=== PATIENT | male | born 1975 | race Caucasian/White ===

== ENCOUNTER 2019-11-19 12:35 | Emergency (ER) | payer OTHER ==
--- NOTE | 2019-11-19 13:34 | XR ---
EXAMINATION TYPE: XR chest 2V DATE OF EXAM: 11/19/2019 COMPARISON: None INDICATION: Cough TECHNIQUE: Frontal and lateral views of the chest are obtained. FINDINGS: The heart size is normal. The pulmonary vasculature is normal. The lungs are clear. IMPRESSION: 1. No acute pulmonary process.
[2019-11-19] MEDS ORDERED: dexAMETHasone 4 MG TAB PO STA (14:00)
--- NOTE | 2019-11-19 14:56 | ED ---
URI HPI - General Chief Complaint: Upper Respiratory Infection Stated Complaint: Upper Resp - NICKIE Time Seen by Provider: 11/19/19 12:57 Source: patient Mode of arrival: wheelchair Limitations: no limitations - History of Present Illness Initial Comments: 44-year-old male presenting for cough congestion sore throat. Patient states his daughters recently diagnosed with strep E states he has had a sore throat since 1 day after her. He states he has notices red and swollen-appearing he states he's also had a cough congestion and sensation of those ears are plugged. Patient denies any chest pain but states he feels slightly short of breath at times and is concerned he has a pneumonia. Patient denies fevers, denies neck stiffnes, nausea, vomiting, rashs, or abdominal pain. Patient has no additional complaints. Upon arrival he appears well nontoxic in no acute distress. - Related Data Home Medications Medication Instructions Recorded Confirmed Omeprazole [PriLOSEC] 20 mg PO DAILY 09/26/14 09/28/14 Rosuvastatin Calcium [Crestor] 5 mg PO DAILY 09/26/14 09/28/14 Previous Rx's Medication Instructions Recorded Clindamycin [Cleocin] 450 mg PO Q8H 7 Days #63 capsule 11/19/19 Allergies Allergy/AdvReac Type Severity Reaction Status Date / Time Penicillins Allergy Swelling Verified 11/19/19 12:43 Review of Systems ROS Statement: Those systems with pertinent positive or pertinent negative responses have been documented in the HPI. ROS Other: All systems not noted in ROS Statement are negative. Past Medical History Past Medical History: GERD/Reflux, Hyperlipidemia History of Any Multi-Drug Resistant Organisms: None Reported Past Surgical History: No Surgical Hx Reported Additional Past Surgical History / Comment(s): EGD Past Anesthesia/Blood Transfusion Reactions: No Reported Reaction Past Psychological History: No Psychological Hx Reported Smoking Status: Never smoker Past Alcohol Use History: Occasional Past Drug Use History: None Reported - Past Family History Father Family Medical History: Deep Vein Thrombosis (DVT) General Exam - General Exam Comments Initial Comments: General: The patient is awake and alert, in no distress Eye: +3 mm pupils are equal, round and reactive to light, extra-ocular movements are intact. No nystagmus. There is normal conjunctiva bilaterally. No signs of icterus. Ears, nose, mouth and throat: There are moist mucous membranes and no oral lesions. Tympanic members within normal limits no pain to the mastoid. Uvula midline that is inflamed. There is some tonsillar exudates or tonsillar enlargement no uvular deviation. No hot potato voice tolerating oral secretions no tripoding or drooling Neck: The neck is supple, there is no tenderness or JVD. Cardiovascular: There is a regular rate and rhythm. No murmur, rub or gallop is appreciated. Respiratory: Lungs are clear to auscultation, respirations are non-labored, breath sounds are equal. No wheezes, stridor, rales, or rhonchi. Gastrointestinal: Soft, non-distended, non-tender abdomen without masses or organomegaly noted. There is no rebound or guarding present. Musculoskeletal: Normal ROM, no tenderness. Strength 5/5. Sensation intact. Radial pulses equal bilaterally 2+. Neurological: A&O x 3. CN II-XII intact grossly, There are no obvious motor or sensory deficits. Coordination appears grossly intact. Speech is normal. Skin: Skin is warm and dry and no rashes or lesions are noted. Psychiatric: Cooperative, appropriate mood & affect, normal judgment. Limitations: no limitations Course Vital Signs 11/19/19 11/19/19 12:40 15:09 Temperature 99.2 F 99.0 F Pulse Rate 94 89 Respiratory 18 16 Rate Blood Pressure 121/75 129/73 O2 Sat by Pulse 98 99 Oximetry Medical Decision Making - Medical Decision Making Nontoxic-appearing 44-year-old male the upper respiratory symptoms. Chest x-ray negative for pneumonia lungs sounded clear to auscultation. Uvula midline however inflamed concerned for uvulitis. Daughter has history of strep. Patient will be placed on clindamycin and instructed to f/u with pcp. kareem madrid in the emergency department. - Lab Data Lab Results 11/19/19 11/19/19 Range/Units 13:44 13:44 Heterophile Antibody Negative (Negative) Group A Strep Rapid Negative (Negative) Disposition Clinical Impression: Uvulitis, Pharyngitis, Cough, Congestion of nasal sinus Disposition: HOME SELF-CARE Condition: Good Instructions (If sedation given, give patient instructions): Upper Respiratory Infection (ED), Uvulitis (ED) Additional Instructions: Please use medication as discussed. Please follow-up with family doctor in the next 2 days.. Please return to emergency room if the symptoms increase or worsen or for any other concerns. Prescriptions: Clindamycin [Cleocin] 450 mg PO Q8H 7 Days #63 capsule Is patient prescribed a controlled substance at d/c from ED?: No Referrals: Stephanie Mack III, MD [Primary Care Provider] - 1-2 days Time of Disposition: 14:56
[2019-11-19 15:09] VITALS: BP 129/73; PULSE 89; RESP 16; TEMP 99
== END 2019-11-19 15:09 | disposition home or self-care (01) ==
LOC: EC 12:35
DX: K12.2 Cellulitis and abscess of mouth (principal); J02.9 Acute pharyngitis, unspecified; K21.9 Gastro-esophageal reflux disease without esophagitis; E78.5 Hyperlipidemia, unspecified; Z20.828 Contact with and (suspected) exposure to other viral communicable diseases; Z88.0 Allergy status to penicillin; Z79.899 Other long term (current) drug therapy
CPT/HCPCS: 36415; 86308; 87081; 87430; 71046; 99285; U0003; J8540

== ENCOUNTER → 2023-08-18 | Outpatient (CLI) | payer OTHER ==
[2023-08-18 19:30] LABS: Alternaria alternata IgE <0.10 kU/L
[2023-08-18 19:31] LABS: Aspergillus fumagatus IgE <0.10 kU/L; Birch IgE <0.10 kU/L; Cat Epith & Dander IgE <0.10 kU/L; Cladosporian herbarum IgE <0.10 kU/L; Cockroach IgE <0.10 kU/L; Dermato. farinae IgE <0.10 kU/L; Dog Dander IgE <0.10 kU/L; Elm IgE <0.10 kU/L; Maple (Box Elder) IgE <0.10 kU/L; Oak IgE <0.10 kU/L; Ragweed,Common IgE <0.10 kU/L; Red Top (Bentgrass) IgE <0.10 kU/L
== END ==
LOC: LABWHC1 10:43
PROVIDERS: ATTEND Internal Medicine Critical Care Medicine
DX: J45.909 Unspecified asthma, uncomplicated (principal)
CPT/HCPCS: 36415; 82785; 85008; 86003

== ENCOUNTER → 2023-11-26 | Outpatient (CLI) | payer OTHER ==
--- NOTE | 2023-12-06 23:08 | P.PCN ---
Date of Procedure: 11/26/23 Operative Findings: Home sleep study testing Date of service is 11/26/2023 Pertinent history This is a 48-year-old male patient who saw me in the office for diminished exercise capacity and episodic dyspnea. The patient also had some features of obstructive sleep apnea including snoring, sleep fragmentation and chronic hypersomnia sleepiness during the day. He is obese with a body mass index of 34.2. He also has some crowding of the posterior pharynx with a Mallampati class IV. No history of cardiac disease. He has hyperlipidemia and acid reflux is comorbid conditions. Pertinent physical findings The patient has a body mass index of 34.2 with a weight of 212 pounds Technical description The [employer] was used to complete his home sleep study. This is a type III home sleep study evaluation. The total recording duration was 8 hours and 49 minutes. The study started at 8:15 PM and the study ended at 5:04 AM. There was a total of 8 hours and 39 minutes of flow monitoring and 5 hours and 7 minutes of oxygen saturation monitoring. Noted that there was also loss of signal in oxygen evaluation/saturation evaluation between 1:50 AM and 4:02 AM and between 10:39 PM and 11:57 PM. Results The respiratory evaluation showed a total of 21 obstructive apneas and 31 obstructive hypopneas. The resulting AHI was 6 Oxygenation analysis The baseline pulse ox was 95% and the average pulse ox during sleep was 94% with a minimum pulse ox of 89%. No significant desaturations encountered throughout the sleep study. The patient managed to stay at a pulse ox above 90% throughout the sleep study Cardiac summary The average heart rate was 67 with a minimum heart rate of 56 and a maximum heart rate of 102 Assessment Mild DWIGHT with an AHI of 6. Deficit with any significant nocturnal oxygen desaturations. Noted the results may be somewhat suboptimal due to loss in signal for a total of 3 hours during the study. Nevertheless, despite the limitation, based on the available oxygen saturation and flow monitoring, no significant sleep breathing disorder was noted. Plan Will discuss the findings with the patient. No immediate need for CPAP therapy. Encourage weight loss. Consider an oral appliance. Maintain good sleep hygiene measures. Maintain regular sleep schedule. Will follow. If the clinical suspicion is high, may consider repeating a study at a later stage.
== END ==
LOC: 3 N SLEEP 10:59
PROVIDERS: ATTEND Internal Medicine Critical Care Medicine